=== PATIENT | female | born 1950 | race Caucasian/White ===

== ENCOUNTER 2021-12-03 13:35 | Outpatient (CLI) | payer OTHER, SELFPAY ==
--- NOTE | 2021-12-03 14:00 | CRLHL7_ITS ---
For Patients: As a result of the Century Cures Act, medical imaging exams and procedure reports are released immediately into your electronic medical record. You may view this report before your referring provider. If you have questions, please contact your health care provider. BILATERAL SCREENING MAMMOGRAM WITH COMPUTER-AIDED DETECTION AND TOMOSYNTHESIS 12/03/2021 TECHNIQUE: CC and MLO views were obtained. These mammographic images have been obtained using full-field digital technique. These mammographic images were interpreted with the benefit of computer-aided detection. Breast Tomosynthesis was used in this interpretation. COMPARISON FILM: 09/10/20, 05/08/18. FINDINGS: There are scattered areas of fibroglandular density IMPRESSION: There is no radiographic evidence for malignancy. ASSESSMENT: BI-RADS Category 1: Negative RECOMMENDATION: Routine screening mammogram in 1 year. A lay language report of this examination will be provided to the patient. Alisha Medrano M.D. Diagnostic/Breast Radiologist [email or web address] NEHA/Dictated by: Alisha Medrano MD @ 12/06/2021 10:38:00 AM (Electronically Signed)
== END 2021-12-03 13:36 | disposition home or self-care (01) ==
LOC: MAMMO 13:39
PROVIDERS: PCP Emergency Medicine; Visit Provider Emergency Medicine
DX: Z12.31 Encounter for screening mammogram for malignant neoplasm of breast (principal)
CPT/HCPCS: 77063; 77067

== ENCOUNTER 2021-12-09 11:31 | Outpatient (CLI) | payer OTHER, SELFPAY ==
[2021-12-09 13:50] LABS: Chloride* 106 mmol/L (96-114); Potassium* 4.5 mmol/L (3.6-5.1); Sodium* 141 mmol/L (135-149)
[2021-12-09 13:53] LABS: Blood Urea Nitrogen* 13 mg/dL (7-30); Carbon Dioxide* 26 mmol/L (20-32); Cholesterol* 166 mg/dL (90-199); Creatinine* 0.7 mg/dL (0.5-1.5); Estimated Glomerular Filt Rate 92 ml/min; Glucose* 102 mg/dL (60-115)
[2021-12-09 13:54] LABS: Calcium* 9.2 mg/dL (8.4-10.6); HDL Cholesterol* 47 mg/dL (>=50); LDL Cholesterol Calculated 98 mg/dL (<100); Triglycerides* 107 mg/dL (40-149)
== END 2021-12-09 11:32 | disposition home or self-care (01) ==
PROVIDERS: PCP Emergency Medicine; Visit Provider Emergency Medicine
DX: Z00.00 Encounter for general adult medical examination without abnormal findings (principal); I10 Essential (primary) hypertension; Z13.6 Encounter for screening for cardiovascular disorders
CPT/HCPCS: 80048; 80061

== ENCOUNTER 2022-12-16 08:00 | Outpatient (CLI) | payer OTHER, SELFPAY | END 2022-12-16 08:01 | disposition home or self-care (01) | LOC: NFLDREF 12-18 09:18 | PROVIDERS: PCP Emergency Medicine; Referring Provider Emergency Medicine; Visit Provider Emergency Medicine | DX: Z00.00 Encounter for general adult medical examination without abnormal findings (principal); E04.1 Nontoxic single thyroid nodule; I10 Essential (primary) hypertension; Z13.6 Encounter for screening for cardiovascular disorders | CPT/HCPCS: 80048; 80061; 84439; 84443 ==

== ENCOUNTER 2022-12-18 08:00 | Outpatient (CLI) | payer OTHER, SELFPAY | END 2022-12-18 08:01 | disposition home or self-care (01) | LOC: NFLDREF 12-21 16:27 | PROVIDERS: PCP Emergency Medicine; Referring Provider Emergency Medicine; Visit Provider Emergency Medicine | DX: E04.1 Nontoxic single thyroid nodule (principal); I10 Essential (primary) hypertension; Z13.220 Encounter for screening for lipoid disorders | CPT/HCPCS: 84480 ==

== ENCOUNTER 2022-12-23 12:32 | Outpatient (CLI) | payer OTHER, SELFPAY ==
--- NOTE | 2022-12-23 13:00 | CRLHL7_ITS ---
For Patients: As a result of the Cures Act, medical imaging exams and procedure reports are released immediately into your electronic medical record. You may view this report before your referring provider. If you have questions, please contact your health care provider. INDICATION: NON TOXIC THYROID NODULE COMPARISON: 12/31/2021 TECHNIQUE: Silverio scale and color Doppler images were acquired of the thyroid gland. FINDINGS: The right lobe measures 5.1 x 1.2 x 1.7 cm and the left lobe measures 5.9 x 2.1 x 2.5 cm in size. The isthmus measures 3 millimeters. Solid and cystic nodule right thyroid lobe measures 2.4 x 1.0 x 1.4 cm, previously measuring 1.5 x 1.4 x 0.9 cm. Similar nodule within the left thyroid lobe measures 3.7 x 1.9 x 2.3 cm, previously measuring 2.9 x 2.1 x 1.7 cm. Additional solid and cystic nodule left thyroid lobe measures 1.6 x 0.9 x 1.2 cm, previously measuring 1.2 x 0.8 x 0.5 cm. The color Doppler images demonstrate normal vascularity. There is no evidence of cervical lymphadenopathy or parathyroid mass. IMPRESSION: Bilateral TR 3 nodules measuring up to 3.7 cm. One or more of these nodules have been previously biopsied. The nodules have increased size since the prior study. Dictated by Buck Lucero MD @ 12/25/2022 6:00:41 AM (Electronically Signed)
== END 2022-12-23 12:33 | disposition home or self-care (01) ==
LOC: US 12:36
PROVIDERS: PCP Emergency Medicine; Visit Provider Emergency Medicine
DX: E04.1 Nontoxic single thyroid nodule (principal)
CPT/HCPCS: 76536

== ENCOUNTER 2023-01-08 10:47 | Outpatient (CLI) | payer OTHER, SELFPAY ==
--- NOTE | 2023-01-08 11:00 | CRLHL7_ITS ---
For Patients: As a result of the Century Cures Act, medical imaging exams and procedure reports are released immediately into your electronic medical record. You may view this report before your referring provider. If you have questions, please contact your health care provider. INDICATION: Nontoxic single thyroid nodule. TECHNIQUE: Oral administration of 249 microcuries iodine 123 performed followed by 24 hour delayed planar and anterior oblique images of the thyroid gland. COMPARISON: Ultrasound 12/23/2022 FINDINGS: Homogeneous uptake of radiotracer within the thyroid. No evidence of cold nodule. 24 hour thyroid uptake 24.4 percent. IMPRESSION: Normal 24 hour thyroid uptake of 24.4 percent. Dictated by Buck Lucero MD @ 01/09/2023 1:54:31 PM (Electronically Signed)
== END 2023-01-08 10:48 | disposition home or self-care (01) ==
LOC: NM 10:47
PROVIDERS: PCP Emergency Medicine; Visit Provider Emergency Medicine
DX: E04.1 Nontoxic single thyroid nodule (principal); R79.89 Other specified abnormal findings of blood chemistry
CPT/HCPCS: 78014; A9509

== ENCOUNTER 2023-01-21 13:30 | Outpatient (CLI) | payer OTHER, SELFPAY | END 2023-01-21 13:31 | disposition home or self-care (01) | LOC: NFLDREF 01-25 06:00 | PROVIDERS: PCP Emergency Medicine; Referring Provider Emergency Medicine; Visit Provider Emergency Medicine | DX: E04.1 Nontoxic single thyroid nodule (principal); R79.89 Other specified abnormal findings of blood chemistry; R73.01 Impaired fasting glucose | CPT/HCPCS: 84445; 86376; 86800 ==

== ENCOUNTER 2023-01-27 08:28 | Outpatient (CLI) | payer OTHER, SELFPAY ==
--- NOTE | 2023-01-27 09:48 | W.ANESCHARGE ---
Anesthesia Charges Start Date/Time Anesthesia Start Date: 01/27/23 Anesthesia Start Time: 09:26 Stop Date/Time Anesthesia Stop Date: 01/27/23 Anesthesia Stop Time: 09:46
--- NOTE | 2023-01-27 10:05 | W.ANESCHARGE ---
Anesthesia Charges Start Date/Time Anesthesia Start Date: 01/27/23 Anesthesia Start Time: 09:26 Stop Date/Time Anesthesia Stop Date: 01/27/23 Anesthesia Stop Time: 09:46 Summary Extremes of Age - Over 70 or under 1: MDA
== END 2023-01-27 08:29 | disposition home or self-care (01) ==
LOC: OP CLINIC 08:29
PROVIDERS: PCP Emergency Medicine; Visit Provider Surgery
DX: Z12.11 Encounter for screening for malignant neoplasm of colon (principal); K63.5 Polyp of colon; K64.4 Residual hemorrhoidal skin tags; K64.8 Other hemorrhoids
CPT/HCPCS: 00811; 45385; 88305; 99100; J2704

== ENCOUNTER 2023-03-17 12:58 | Outpatient (CLI) | payer OTHER, SELFPAY ==
--- NOTE | 2023-03-17 13:20 | CRLHL7_ITS ---
For Patients: As a result of the Century Cures Act, medical imaging exams and procedure reports are released immediately into your electronic medical record. You may view this report before your referring provider. If you have questions, please contact your health care provider. BILATERAL SCREENING MAMMOGRAM WITH COMPUTER-AIDED DETECTION AND TOMOSYNTHESIS TECHNIQUE: CC and MLO views were obtained. These mammographic images have been obtained using full-field digital technique. These mammographic images were interpreted with the benefit of computer-aided detection. Breast Tomosynthesis was used in this interpretation. COMPARISON FILM: [facility] 12/03/21 [facility]: 09/10/20, 05/08/18. FINDINGS: There are scattered areas of fibroglandular density. IMPRESSION: There is no radiographic evidence for malignancy. ASSESSMENT: BI-RADS Category 1: Negative RECOMMENDATION: Routine screening mammogram in 1 year. A lay language report of this examination will be provided to the patient. Buck Lucero M.D. Diagnostic Radiologist [email or web address] SP/Dictated by: Buck Lucero MD @ 03/20/2023 11:43:00 AM (Electronically Signed)
== END 2023-03-17 12:59 | disposition home or self-care (01) ==
LOC: MAMMO 12:59
PROVIDERS: PCP Emergency Medicine; Visit Provider Emergency Medicine
DX: Z12.31 Encounter for screening mammogram for malignant neoplasm of breast (principal)
CPT/HCPCS: 77063; 77067

== ENCOUNTER 2023-05-19 13:12 | Outpatient (CLI) | payer OTHER, SELFPAY | END 2023-05-19 13:13 | disposition home or self-care (01) | LOC: NFLDREF 05-22 07:05 | PROVIDERS: PCP Emergency Medicine; Referring Provider Emergency Medicine; Visit Provider Emergency Medicine | DX: R39.9 Unspecified symptoms and signs involving the genitourinary system (principal); N39.0 Urinary tract infection, site not specified; N30.00 Acute cystitis without hematuria | CPT/HCPCS: 87086; 87186 ==

== ENCOUNTER 2023-12-16 13:28 | Outpatient (CLI) | payer OTHER, SELFPAY | END 2023-12-16 13:29 | disposition home or self-care (01) | LOC: LKVREF 13:29 | PROVIDERS: PCP Emergency Medicine; Visit Provider Emergency Medicine | DX: Z00.00 Encounter for general adult medical examination without abnormal findings (principal); I10 Essential (primary) hypertension; R73.03 Prediabetes | CPT/HCPCS: 80048 ==

== ENCOUNTER 2024-05-11 09:48 | Outpatient (CLI) | payer OTHER, SELFPAY | END 2024-05-11 09:49 | disposition home or self-care (01) | LOC: LKVREF 16:12 | PROVIDERS: PCP Emergency Medicine; Referring Provider Emergency Medicine; Visit Provider Emergency Medicine | DX: E05.90 Thyrotoxicosis, unspecified without thyrotoxic crisis or storm (principal) | CPT/HCPCS: 84439; 84443 ==

== ENCOUNTER 2024-06-15 09:56 | Outpatient (CLI) | payer OTHER, SELFPAY ==
--- NOTE | 2024-06-15 10:15 | CRLHL7_ITS ---
For Patients: As a result of the Century Cures Act, medical imaging exams and procedure reports are released immediately into your electronic medical record. You may view this report before your referring provider. If you have questions, please contact your health care provider. INDICATION: BILATERAL SCREENING MAMMOGRAM, ASYMPOTMATIC 73 Y/O FEMALE COMPARISON: 03/17/23, 12/03/21, 09/10/20 TECHNIQUE: CC and MLO views were obtained. These mammographic images have been obtained using full-field digital technique. These mammographic images were interpreted with the benefit of computer aided detection and tomosynthesis. BREAST COMPOSITION: There are scattered areas of fibroglandular density. FINDINGS: No suspicious findings. ASSESSMENT: BI-RADS 1 Negative RECOMMENDATION: Annual screening mammogram. A lay language report of this examination will be provided to the patient. Dictated by: Buck Lucero MD @ 06/22/2024 12:59:47 (Electronically Signed)
== END 2024-06-15 09:57 | disposition home or self-care (01) ==
LOC: MAMMO 09:57
PROVIDERS: PCP Emergency Medicine; Visit Provider Emergency Medicine
DX: Z12.31 Encounter for screening mammogram for malignant neoplasm of breast (principal)
CPT/HCPCS: 77063; 77067

== ENCOUNTER 2025-01-11 14:07 | Outpatient (CLI) | payer OTHER, SELFPAY | END 2025-01-11 14:08 | disposition home or self-care (01) | PROVIDERS: PCP Family Medicine; Visit Provider Family Medicine | DX: E05.90 Thyrotoxicosis, unspecified without thyrotoxic crisis or storm (principal); I10 Essential (primary) hypertension; Z13.21 Encounter for screening for nutritional disorder | CPT/HCPCS: 80048; 82607; 84439; 84443; 84480 ==